=== PATIENT | male | born 1955 | race Caucasian/White ===

== ENCOUNTER 2021-11-16 09:22 | Emergency (ER) | payer OTHER ==
[~2021-11-16] VITALS: Ht 152.4 cm; Wt 86.2 kg
[2021-11-16] MEDS ORDERED: COZAAR50 MG PO (09:55)
[2021-11-16] MEDS ORDERED: AMLODIPINE-OLM1 EAC2 (09:56)
[2021-11-16] MEDS ORDERED: KEPPRA500 MG (09:56)
== END 2021-11-16 17:58 | disposition home or self-care (01) ==
LOC: ER 09:22 → EDBD 09:22 → ER 09:43
DX: G25.2 Other specified forms of tremor (principal); F10.239 Alcohol dependence with withdrawal, unspecified